=== PATIENT | male | born 1995 | race Two or more races ===

== ENCOUNTER 2020-08-05 09:32 | Emergency (ER) | payer OTHER, SELFPAY ==
[~2020-08-05] VITALS: Ht 180.3 cm; Wt 88.0 kg
[2020-08-05] MEDS ORDERED: MORPHINE SULFATE 4 MG/ML, 1ML ONE ×2 (09:34→10:13)
[2020-08-05] MEDS ORDERED: ONDANSETRON 2MG/ML, 2ML ONE (09:42)
[2020-08-05] MEDS: MORPHINE SULFATE 4 MG/ML, 1ML IVPush PRN ×2 (09:44→10:15)
[2020-08-05] MEDS ORDERED: SODIUM CHLORIDE 0.9% 1,000ML IVBOLUS ONE (10:00)
[2020-08-05] MEDS ORDERED: ONDANSETRON 2MG/ML, 2ML IVPush ONE (10:00)
[2020-08-05 11:26] VITALS: BP 125/84
== END 2020-08-05 11:33 | disposition home or self-care (01) ==
LOC: ED 11:00
DX: S43.005A Unspecified dislocation of left shoulder joint, initial encounter (principal); X58.XXXA Exposure to other specified factors, initial encounter; Y93.89 Activity, other specified; Y92.89 Other specified places as the place of occurrence of the external cause; Y99.8 Other external cause status
CPT/HCPCS: 23650; 73030; 96361; 96374; 96375; 96376; 99284; J2270; J2405; J7030